=== PATIENT | male | born 1950 | race Caucasian/White ===

== ENCOUNTER 2017-10-21 08:17 | Day surgery (SDC) | payer OTHER ==
[~2017-10-21] VITALS: Ht 172.7 cm; Wt 90.8 kg
[~2017-10-21 08:17] MED LIST: ADVAIR 250/501 DISK IH; BOTOX200 UNIT IJ; CALAN40 MG PO; CARBAMAZEPINE200 MG PO; CEFTIN250 MG PO; DIAZEPAM10 MG PO; DULERA 100 MCG/13 GM IH; DUONEB3 ML IH; LEVAQUIN500 MG PO; LEVAQUIN750 MG PO; LIORESAL10 MG PO; MECLIZINE HCL25 MG PO; MEDROL DOSEPAK4 MG PO; MELOXICAM15 MG PO; MONTELUKAST SOD10 MG PO; MUCINEX1200 MG PO; PANTOPRAZOLE SO40 MG PO; PERCOCET 5/31 TABLET PO; PREDNISONE10 MG PO; PRISTIQ100 MG PO; PRISTIQ50 MG PO; PROTONIX40 MG PO; SINEMET 25-1001 EACH PO; SINGULAIR10 MG PO; SPIRIVA1 INHALATI IH; STERAPRED DS 1010 MG PO; SYNTHROID100 MCG PO; TEGRETOL200 MG PO; TOPAMAX100 MG PO; TOPAMAX25 MG PO; TOPIRAMATE25 MG PO; TYLENOL WITH C1 EACH PO; VALIUM10 MG PO; VENTOLIN HFA18 GM IH; VENTOLIN17 GM IH; VERAPAMIL HCL40 MG PO; predniSONE PO
[2017-10-21 09:19] VITALS: BP 141/89
[2017-10-21 11:45] VITALS: BP 133/72
[2017-10-21 12:53] VITALS: BP 132/68
[2017-10-21 13:05] VITALS: BP 132/68
== END 2017-10-21 13:05 | disposition home or self-care (01) ==
LOC: SDC 08:17
DX: H35.341 Macular cyst, hole, or pseudohole, right eye (principal); J45.909 Unspecified asthma, uncomplicated; I10 Essential (primary) hypertension; G47.33 Obstructive sleep apnea (adult) (pediatric); E03.9 Hypothyroidism, unspecified; G20 Parkinson's disease
CPT/HCPCS: J0690; J0713; J3300

== ENCOUNTER → 2018-02-02 | Outpatient (CLI) | payer OTHER | END | disposition home or self-care (01) | LOC: NUC 09:00 | DX: R25.1 Tremor, unspecified (principal) | CPT/HCPCS: 78607; A9584 ==